=== PATIENT | male | born 1995 | race Two or more races ===

== ENCOUNTER 2024-02-24 10:17 | Day surgery (SDC) | payer OTHER ==
[2024-02-15 15:36] LABS: HEMATOCRIT 38.2 % (39.0-48.0); HEMOGLOBIN 13.1 g/dL (13-16.00); MEAN CELL VOLUME 91.2 fL (80.0-100.00); MEAN CORPUSCULAR HEMOGLOBIN 31.2 pg (27.00-32.0); MEAN CORPUSCULAR HGB CONC 34.2 g/dl (32.0-36.0); PLATELET COUNT 298 K/uL (150-450); RED BLOOD COUNT 4.19 M/uL (4.00-6.00); RED CELL DISTRIBUTION WIDTH 14.4 % (11.5-14.5)
[2024-02-15 15:58] LABS: INR 1.05; PARTIAL THROMBOPLASTIN TIME 27.6 SECONDS (22.0-34.0); PROTHROMBIN TIME 11.4 SECONDS (9.0-11.5)
[2024-02-15 16:00] LABS: PH,URINE 7.5 (5.0-8.0); URINE APPEARANCE Clear; URINE BILIRRUBIN Negative (NEGATIVE); URINE BLOOD Negative; URINE COLOR Yellow; URINE GLUCOSE Negative (NEGATIVE); URINE KETONE Negative (NEGATIVE); URINE LEUKOCYTE Negative; URINE NITRATE Negative; URINE PROTEIN Negative (NEGATIVE)
[2024-02-15 16:02] LABS: ALBUMIN 4.2 gm/dL (3.4-5.0); BILIRUBIN TOTAL 0.38 mg/dL (0.3-1.2); CALCIUM 9.3 mg/dL (8.5-10.1); CREATININE SERUM 0.72 mg/dL (0.70-1.30); GFR 130.95; GLOBULINA 3.1 G/DL (2.4-3.5); POTASSIUM 4.03 mEq/L (3.5-5.1); TOTAL PROTEIN 7.3 gm/dL (6.4-8.2)
[2024-02-15 16:04] LABS: URINE BACTERIA 124.5 uL (0.0-1933); URINE EPITHELIAL CELLS 9.3 uL (0.0-38.8)
[2024-02-15 16:22] LABS: URINE RBC 1.2 uL (0.0-20.8)
[2024-02-24] MEDS ORDERED: METRONIDAZOLE/SODIUM CHLORIDE 500 MG/100 ML PIGGYBACK IV ONE (12:55)
[2024-02-24] MEDS ORDERED: CEFTRIAXONE SODIUM 2,000 MG VIAL IV ONE (12:55)
[2024-02-24] MEDS ORDERED: POVIDONE-IODINE 118 ML BOTT TOP ONE (13:20)
[2024-02-24] MEDS ORDERED: BUPIVACAINE HCL 30 ML VIAL IJ ONE (13:25)
[2024-02-24] MEDS ORDERED: LIDOCAINE HCL 1%/EPINEPHRINE 20ML VIAL IJ ONE (13:25)
[2024-02-24] MEDS ORDERED: DIBUCAINE 15 GM OINT..GM. TUBE RECTAL ONE (13:40)
[2024-02-24] MEDS ORDERED: HEMOSTATIC MATRIX 1 KIT KIT TOP ONE (13:40)
== END 2024-02-24 17:30 | disposition home or self-care (01) ==
LOC: CIR.AMB 10:17
PROVIDERS: ATTEND Colon & Rectal Surgery
DX: K60.50 Anorectal fistula, unspecified (principal); K64.2 Third degree hemorrhoids; J44.9 Chronic obstructive pulmonary disease, unspecified